=== PATIENT | female | born 1980 | race Caucasian/White ===

== ENCOUNTER → 2018-12-29 | Outpatient (CLI) | payer BC ==
--- NOTE | 2018-12-29 15:31 | KCIC ---
Examination: Ultrasound pelvis HISTORY: History of irregular bleeding COMPARISON: None available FINDINGS: The uterus measures 7.4 x 4.2 x 4.8 cm. The endometrium is 2.4 mm in thickness. The right ovary measures 3.2 x 1.7 x 2.1 cm. The left ovary measures 3.9 x 1.6 x 2.4 cm. There is a 1.2 cm complex septated cystic structure identified in the left ovary. Linear echogenicity identified in the endometrium likely intrauterine contraceptive device. Few calcifications identified in the cervix. Few nabothian cysts identified. IMPRESSION: 1. Intrauterine contraceptive device is within the endometrium. 2. 1.2 cm septated cystic structure identified in the left ovary. Follow-up examination is recommended to document stability. Electronically signed by: Bret Montenegro MD (12/29/2018 3:28 PM) [place] [id number]
--- NOTE | 2018-12-29 17:51 | KCIC ---
Bilateral diagnostic digital mammograms with 3-D tomosynthesis: Reason for examination: Right breast lump at the 10:00 position on clinical exam. Baseline exam. Bilateral mammograms in CC and oblique projections were obtained with 2-D imaging and 3-D tomosynthesis imaging on a Siemens Inspiration unit and reviewed on the workstation. Interpretation was made with the benefit of CAD. The skin and nipples show no abnormalities. No abnormal axillary lymph nodes are seen. The breast parenchyma shows scattered fatty and fibroglandular density. (Breast density: Category B.) There are no dominant masses, suspicious calcifications or architectural distortion. Impression: No evidence of malignancy. Ultrasound to follow. BI-RAD Category 0: Incomplete. Needs additional imaging evaluation. Right breast ultrasound: Right breast ultrasound in the area of clinical concern and the retroareolar and axillary regions of the right breast was performed. No cystic or solid nodules are seen. No abnormal appearing lymph nodes are seen in the axilla. IMPRESSION: No focal abnormalities evident in the right breast. Recommend reevaluation with mammograms and ultrasound in 6 months to verify stability of the tissues. BI-RADS Category 3: Probably Benign. "Our facility is accredited by the [employer] Mammography [employer]." This patient's information has been entered into a reminder system for the patient to be notified with the results of her examination and a target date for the next mammogram. Electronically signed by: Geovanna Whittington MD (12/29/2018 5:48 PM) [id number]
== END | disposition home or self-care (01) ==
LOC: KCIC US 07:53
PROVIDERS: ATTEND Obstetrics & Gynecology
DX: N88.8 Other specified noninflammatory disorders of cervix uteri (principal); N63.11 Unspecified lump in the right breast, upper outer quadrant
CPT/HCPCS: 76641; 76830; 76856; 77066; G0279; 77062